=== PATIENT | female | born 1975 | race Caucasian/White ===

== ENCOUNTER 2025-02-09 07:45 | Day surgery (SDC) | payer MEDICAID, SELFPAY ==
[2025-02-09] VITALS (9 sets, daily range): BP systolic 119–163; BP diastolic 60–117; PULSE 69–83; RESP 12–20; TEMP 36.1–36.4; O2SAT 94–100; BMI 35.0
[2025-02-09] MEDS: RINGERS LACTATED 1000 ML 1,000 ML 125 ML IV (09:56)
[2025-02-09] MEDS: MIDAZOLAM INJ 1 MG/ML VIAL 2 ML (ASD USE ONLY) 2 MG IVP ×2 (10:00→10:04)
[2025-02-09] MEDS: BENZOCAINE 20% (Hurricaine) SPRAY 1 DOSE TOP (10:00)
[2025-02-09] MEDS: fentaNYL CIT INJ 50 mCg/ML AMP 2ML (ASD USE ONLY) IVP ×2 (10:00→10:04)
== END 2025-02-09 10:49 | disposition home or self-care (01) ==
PROVIDERS: Referring Provider Internal Medicine Gastroenterology; Visit Provider Internal Medicine Gastroenterology
PROC: (CPT 43239; principal; 2025-02-09 08:15)
DX: K29.50 Unspecified chronic gastritis without bleeding (principal); K52.9 Noninfective gastroenteritis and colitis, unspecified; I10 Essential (primary) hypertension
CPT/HCPCS: 43239; 81025; A4649; J1200; J2250; J3010; J7120; A9270

== ENCOUNTER 2025-02-11 11:05 | Day surgery (SDC) | payer MEDICAID, SELFPAY ==
[2025-02-11] VITALS (10 sets, daily range): BP systolic 103–156; BP diastolic 51–90; PULSE 79–97; RESP 16–19; TEMP 36.4–36.5; O2SAT 95–100; BMI 33.5
[2025-02-11] MEDS: RINGERS LACTATED 1000 ML 1,000 ML 20 ML IV (12:59)
[2025-02-11] MEDS: fentaNYL CIT INJ 50 mCg/ML AMP 2ML (ASD USE ONLY) IVP ×2 (12:59→13:13)
[2025-02-11] MEDS: MIDAZOLAM INJ 1 MG/ML VIAL 2 ML (ASD USE ONLY) 2 MG IVP (13:07)
== END 2025-02-11 14:05 | disposition home or self-care (01) ==
PROVIDERS: Referring Provider Internal Medicine Gastroenterology; Visit Provider Internal Medicine Gastroenterology
PROC: 0DBE8ZX Excision of Large Intestine, Via Natural or Artificial Opening Endoscopic, Diagnostic (ICD-10-PCS; CPT 45380; principal; 2025-02-11 12:45)
DX: K63.5 Polyp of colon (principal); K64.8 Other hemorrhoids; K57.30 Diverticulosis of large intestine without perforation or abscess without bleeding; I10 Essential (primary) hypertension
CPT/HCPCS: 45380; A4217; A4649; J1200; J2250; J3010; J7120

== ENCOUNTER 2025-05-06 11:00 | Day surgery (SDC) | payer MEDICAID, SELFPAY ==
[2025-05-05 12:52] VITALS: BMI 34.3
[2025-05-06] VITALS (11 sets, daily range): BP systolic 144–170; BP diastolic 69–120; PULSE 68–102; RESP 10–17; TEMP 36.4–36.6; O2SAT 90–100; BMI 35.2
[2025-05-06] MEDS: MIDAZOLAM INJ 1 MG/ML VIAL 2 ML (ASD USE ONLY) 2 MG IVP (13:09)
[2025-05-06] MEDS: RINGERS LACTATED 500 ML 500 ML 20 ML IV (13:09)
[2025-05-06] MEDS: BENZOCAINE 20% (Hurricaine) SPRAY 1 DOSE TOP (13:09)
[2025-05-06] MEDS: fentaNYL CIT INJ 50 mCg/ML AMP 2ML (ASD USE ONLY) IVP (13:15)
[2025-05-06] MEDS: LABETALOL INJ 5 MG/ML VIAL 20 ML 2.5 MG IVP (13:21)
== END 2025-05-06 14:10 | disposition home or self-care (01) ==
PROVIDERS: PCP Physician Assistant Medical; Referring Provider Internal Medicine Gastroenterology; Visit Provider Internal Medicine Gastroenterology
PROC: (CPT 43239; principal; 2025-05-06 14:30)
DX: K29.50 Unspecified chronic gastritis without bleeding (principal); I10 Essential (primary) hypertension; K31.89 Other diseases of stomach and duodenum
CPT/HCPCS: 43239; A4649; J1200; J2250; J3010; J3490; J7120; A9270; J1920